=== PATIENT | female | born 1985 | race Asian ===

== ENCOUNTER 2016-11-22 10:53 | Observation (INO) | payer MEDICAID, OTHER ==
[2016-11-22] MEDS ORDERED: NS 1,000 ML IV ONE (10:57)
--- NOTE | 2016-11-22 11:18 | CPEKG ---
Heart Rate: 71 RR Interval: 845 P-R Interval: 132 QRSD Interval: 82 QT Interval: 400 QTC Interval: 435 P [place]: -3 QRS [place]: 77 T Wave [place]: 11 EKG Severity - NORMAL ECG - EKG Impression: SINUS RHYTHM Electronically Signed By: Laverne Bill 22-Nov-2016 12:24:43
[2016-11-22 11:35] LABS: % IMMATURE GRANULYOCYTES 0.2 % (0.0-1.1); ABSOLUTE IMMATURE GRANULOCYTES 0.01 10^3/uL (0.00-0.10); ADD DIFF? NO; ADD MORPH? NO; ADD SCAN? YES; FRAGMENT RBC FLAG 0 (0-99); HEMATOCRIT 37.6 % (38.0-47.0); HEMOGLOBIN 12.3 g/dL (12.6-16.3); LEFT SHIFT FLG 0 (0-99); LIPEMIA HEMOLYSIS FLAG 80 (0-99); MEAN CELL HEMOGLOBIN 25.1 pg (27.9-34.1); MEAN CELL HEMOGLOBIN CONCENTR. 32.7 g/dL (32.4-36.7); MEAN CELL VOLUME 76.7 fL (81.5-99.8); MEAN PLATELET VOLUME 10.5 fL (8.7-11.7); PLATELET CLUMPS FLAG 0 (0-99); PLATELET COUNT 235 10^3/uL (150-400); RED CELL DISTRIBUTION WIDTH 13.7 % (11.5-15.2)
[2016-11-22 11:37] LABS: ATYPICAL LYMPHOCYTE FLAG 180 (0-99)
[2016-11-22] MEDS ORDERED: LIDOCAINE 1% 30 ML SDV ONE (11:42)
[2016-11-22] MEDS ORDERED: BUPIVACAINE 0.5% 30 ML SDV ONE (11:42)
[2016-11-22] MEDS ORDERED: ISOPROTERENOL HCL 0.2 MG/ML 5ML AMP ONE (11:42)
[2016-11-22] MEDS ORDERED: HEPARIN 10,000 UNIT/10 ML MDV ONE (11:42)
[2016-11-22 11:49] LABS: INR 1.09 (0.83-1.16)
[2016-11-22 11:50] LABS: APTT 31.4 SEC (23.0-38.0)
[2016-11-22 11:58] LABS: ANION GAP 9 mEq/L (8-16); CALCIUM 8.5 mg/dL (8.5-10.4); CARBON DIOXIDE 22 mEq/l (22-31); CHLORIDE 111 mEq/L (97-110); CREATININE 0.7 mg/dL (0.6-1.0); GLOMERULAR FILTRATION RATE > 60; GLUCOSE 87 mg/dL (70-100); MAGNESIUM 1.7 mg/dL (1.6-2.3); POTASSIUM 3.8 mEq/L (3.5-5.2); SODIUM 142 mEq/L (134-144)
[2016-11-22 12:08] LABS: SCAN POSITIVE
[2016-11-22 12:10] LABS: PLATELET ESTIMATE ADEQUATE (ADEQ)
[2016-11-22] MEDS ORDERED: NS IV ONE (13:30)
[2016-11-22] MEDS ORDERED: SODIUM BENZOATE IV ONE (13:30)
[2016-11-22] MEDS ORDERED: CAFFEINE IV ONE (13:30)
[2016-11-22] MEDS ORDERED: ATROPINE SULFATE 1 MG/10 ML SYR ONE (14:22)
--- NOTE | 2016-11-22 14:44 | EPPROC ---
Electrophysiology Procedure Note: DIAGNOSTIC ELECTROPHYSIOLOGIC STUDY Procedures performed: 1. Fluoroscopy 2. EP evaluation with RA/RV/LA pace/record, with arrhythmia induction 3. EP evaluation with RA/RV pace record, insert/reposition catheter, with arrhythmia induction 4. Programmed stimulation + pacing after IV drug INDICATION: SVT, 158 bpm seen on LINQ monitor, likely AT vs. sinus tachycardia PROCEDURE: Catheters & Anesthesia: The patient arrived in the Electrophysiology Laboratory in the fasting state. The right clavicular region, right groin, & left groin area were prepped & draped in the usual sterile manner. Procedure was done with patient fully awake. Appropriate non-invasive blood pressure, pulse oximetry & end-tidal CO2 monitoring was established. All catheters were placed percutaneously using the modified Seldinger technique , and advanced into position under fluoroscopic guidance. One #6 [place] hexapolar non-deflectable electrode catheter was inserted into the right atrial appendage via the left femoral vein (2mm spacing; except the proximal ring which was 25cm from the tip - used for unipolar recordings). One #7 [place] deflectable octapolar electrode catheter was advanced to the His-bundle position via the left femoral vein (2mm spacing). One #7 [place] deflectable catheter with 10 pairs of electrodes was placed via the right femoral vein into the coronary sinus. Programmed stimulation was performed from the right atrium, right ventricle and coronary sinus (left atrium). Parahisian pacing demonstrated constant H-A interval with changing V-A intervals and stimulus-A intervals during capture and loss of capture of proximal RBB proving retrograde conduction over AV node. Heparin was administered to keep ACT > 200 seconds. No sustained reentrant tachycardia was induced during programmed stimulation at baseline or during graded doses of isoproterenol up to 4 mcg/min. Nonsustained atrial fibrillation was seen. 500 mg of caffeine IV was also administered. The catheters were removed. The patient was transferred to the cardiovascular holding area in stable condition. Vascular access sheaths were removed in the holding area. There were no apparent complications. Results: A. Spontaneous Intervals: Pre ablation SCL 890 ms AH 60 ms HV 45 ms B. Antegrade AV yoselyn function (decremental pacing) Pre ablation FPERP 440 ms WBB CL 430 ms C. Retrograde AV yoselyn function (decremental pacing) Pre ablation FPERP 560 ms WBB CL 550 ms CONCLUSIONS 1. Normal sinus and AV node function. 2. No evidence of accessory AV pathway presence. 3. No sustained arrhythmias induced. No ablation done. 4. No apparent complications. Patient Problems: Problems Problem Status Diagnosed Supraventricular tachycardia Acute Supraventricular tachycardia, nonsustained Acute
[2016-11-22] MEDS: METOPROLOL TARTRATE 25 MG TAB PO SCH (20:27)
[2016-11-22] MEDS: TOPIRAMATE 25 MG TAB PO SCH (20:27)
[2016-11-23 04:49] VITALS: O2SAT 98
[2016-11-23 08:25] VITALS: BP 106/67; PULSE 78; RESP 19; TEMP 98.2
[2016-11-23] MEDS: TOPIRAMATE 25 MG TAB PO SCH (08:34)
[2016-11-23] MEDS: METOPROLOL TARTRATE 25 MG TAB PO SCH (08:34)
--- NOTE | 2016-11-23 11:11 | GDS ---
[f rep st] DISCHARGE SUMMARY DISCHARGE DIAGNOSIS: Supraventricular tachycardia, unable to be induced by EP study, and therefore, no ablation was done. HOSPITAL COURSE: For detailed H and P, please see prior dictation. Briefly, Francesca is a 31-year -old female with a long history of SVT. She initially presented to [facility] ER in of 2014 with near syncope. She was found to have SVT at that time. She had a trial of medical th erapy including calcium channel blockers and beta-blockers, which controlled her arrhythmia for short periods of time. Unfortunately, her blood pressure is on the low side and she was symptomatic with these medications as well. Ultimately, she had an EP study with sedation which no arrhythmia was ind uced. She decided to proceed with an EP study without sedation which was performed on November [address] Venkata Monzon. SVT was unable to be induced at that time. No ablation was done. She did complai n of back discomfort and chest discomfort the day of the procedure. By the following morning, both o f those symptoms had significantly declined. PHYSICAL EXAMINATION: GENERAL: Patient appears in no acute distress. VITALS: Blood pressure 106/6 7, heart rate 78, oxygen saturation of 98% on room air, afebrile. LUNGS: Clear to auscultation. No wheezes, rhonchi, or crackles auscultated. CARDIAC: Regular rate and rhythm without any murmurs, r ubs, or gallops appreciated. ABDOMEN: Soft, nontender, nondistended. Bowel sounds present. EXTREM ITIES: Bilateral groins where access was obtained for the EP study are clean, intact without any nemesio dence of hematoma or infection. DISCHARGE MEDICATIONS: Aspirin 81 mg daily, Topamax 50 mg twice daily, metoprolol 25 mg twice daily. PLAN: Francesca is currently stable and ready for discharge home. She has been given groin precaut ions. She will call our office to schedule a followup with Dr. Monzon in 1 month. She will continue ba by aspirin for 6 weeks. /[id number]/MODL
== END 2016-11-23 09:29 | disposition home or self-care (01) ==
LOC: FCATH 10:53 → F2W 14:44
PROVIDERS: ADMIT Internal Medicine Cardiovascular Disease; ATTEND Internal Medicine Cardiovascular Disease
DX: I47.1 Supraventricular tachycardia (principal); Z88.8 Allergy status to other drugs, medicaments and biological substances
CPT/HCPCS: 93005; 93620; 93621; 93623; C1730; C1731; G0378; J0461; J1644

== ENCOUNTER 2018-04-10 10:31 | Day surgery (SDC) | payer OTHER, MEDICAID ==
[2018-04-10] MEDS ORDERED: LIDOCAINE 1% 300 MG/30 ML SDV SC ONE (10:34)
--- NOTE | 2018-04-10 10:46 | PDGENHP ---
History & Physical Chief Complaint: ILR at end of service History of Present Illness: atrial arrhythmias Relevant Physical Exam: s1s2 rrr cta ao3 Cardiorespiratory Assessment: ilr explant under sedation and local anesthesia
[2018-04-10] MEDS ORDERED: BUPIVACAINE 0.5% 30 ML SDV ONE (10:50)
[2018-04-10] MEDS ORDERED: LIDOCAINE 1% 300 MG/30 ML SDV ONE (10:50)
--- NOTE | 2018-04-10 11:23 | EPPROC ---
Electrophysiology Procedure Note: ILR explant. Pt did not want sedation. Prepped and draped in EP lab under sterile conditions. Lidocaine given in L parasternal area. ILR had moved so separate incision was made, patient aware of separate incision pre procedure. Using blunt and sharp dissection, ILR was exposed and removed. 2 victor m applied. No complications. Patient Problems: Problems Problem Status Onset Supraventricular tachycardia Acute Supraventricular tachycardia, nonsustained Acute
== END 2018-04-10 11:00 | disposition home or self-care (01) ==
LOC: FCATH 10:31
PROVIDERS: ATTEND Internal Medicine Cardiovascular Disease
PROC: 0JPT02Z Removal of Monitoring Device from Trunk Subcutaneous Tissue and Fascia, Open Approach (ICD-10-PCS; principal; 2018-04-10)
DX: I47.1 Supraventricular tachycardia (principal)